=== PATIENT | female | born 1965 | race Hispanic/Latino ===

== ENCOUNTER 2022-07-08 16:09 | Inpatient (IN) | payer OTHER ==
[~2022-07-08] VITALS: Ht 142.2 cm; Wt 96.2 kg
[~2022-07-08 16:09] MED LIST: DEXAMETHASONE SOD PHOS INJ 4 MG/ML SDV ONE; EPHEDRINE SULFATE INJ 50 MG/ML VIAL ONE; LIDOCAINE HCL 2% LOCAL INJ 5 ML SDV VIAL INJ ONE; METOCLOPRAMIDE HCL 10 MG/2ML VIAL ONE; ONDANSETRON HCL INJ 2MG/ML 2ML 2 MG/ML VIAL ONE; POVIDONE IODINE 0.05% 0.05 % ML PO ONE; PROPOFOL IV EMULSION 10 MG/ML 20 ML VIAL ONE; ROCURONIUM BROMIDE 10 MG/ML 5ML VIAL IV ONE; SUCCINYLCHOLINE CHLORIDE 20 MG/ML 10ML VIAL ONE
[2022-07-08] MEDS ORDERED: ONDANSETRON HCL INJ 2MG/ML 2ML 2 MG/ML VIAL IV PRN ×2 (16:30→17:30)
[2022-07-08] MEDS ORDERED: Morphine 4mg INJECTION 4 MG/ML INJ IV PRN ×2 (16:30→17:30)
[2022-07-08] MEDS ORDERED: SODIUM CHLORIDE 0.9% 1000ML 1,000 ML IV ONE (16:30)
[2022-07-08 16:53] LABS: BASOPHILS % 0.2 % (0.0-1.0); EOSINOPHILS % 0.1 % (0.0-6.0); HEMATOCRIT 42.1 % (34.2-44.1); HEMOGLOBIN 13.6 g/dL (12.0-16.0); LYMPHOCYTES # (AUTO) 1.5 (1.0-3.2); LYMPHOCYTES % 7.9 % (18.0-39.1); MEAN CORPUSCULAR HGB CONC 32.3 g/dL (31-35); MEAN CORPUSCULAR VOLUME 92.7 fL (81-99); MONOCYTES # (AUTO) 1.3 (0.2-0.8); MONOCYTES % 6.5 % (4.4-11.3); NEUTROPHILS # (AUTO) 16.3 (2.1-6.9); NEUTROPHILS % 84.2 % (38.7-80.0); PLATELET COUNT 218 x10e3/uL (140-360); RED BLOOD COUNT 4.54 x10e6/uL (3.6-5.1)
[2022-07-08 17:12] LABS: ALANINE AMINOTRANSFERASE 30 IU/L (0-55); ALBUMIN 2.9 g/dL (3.5-5.0); ALBUMIN/GLOBULIN RATIO 0.8 (0.8-2.0); ALKALINE PHOSPHATASE 79 IU/L (40-150); ANION GAP 15.2 mmol/L (8-16); BLOOD UREA NITROGEN 51 mg/dL (7-26); BUN/CREATININE RATIO 35 (6-25); CALCIUM 9.3 mg/dL (8.4-10.2); CARBON DIOXIDE 23 mmol/L (22-29); CHLORIDE 108 mmol/L (98-107); CREATININE, SERUM 1.44 mg/dL (0.57-1.11); GLUCOSE 103 mg/dL (74-118); POTASSIUM 3.2 mmol/L (3.5-5.1); SODIUM 143 mmol/L (136-145)
[2022-07-08] MEDS ORDERED: IOPAMIDOL 370 MG/ML 100 ML INFUS..BTL INJ ONE (18:19)
[2022-07-08] MEDS: METRONIDAZOLE 500MG/NS 100ML 100 ML IV SCH (19:11)
[2022-07-08] MEDS: SODIUM CHLORIDE 0.9% 1000ML 1,000 ML IV SCH (19:11)
[2022-07-08] MEDS: POTASSIUM CHLORIDE 20MEQ/100ML 100 ML IV SCH ×2 (19:13→21:42)
[2022-07-08 23:27] VITALS: BP 133/47; PULSE 94; RESP 20; TEMP 98.1; O2SAT 94
[2022-07-09] VITALS (8 sets, daily range): BP systolic 100–151; BP diastolic 43–75; PULSE 79–94; RESP 18–23; TEMP 97.6–98.4; O2SAT 94–100
[2022-07-09] MEDS: METRONIDAZOLE 500MG/NS 100ML 100 ML IV SCH ×5 (00:23→23:39)
[2022-07-09] MEDS: SODIUM CHLORIDE 0.9% 1000ML 1,000 ML IV SCH ×4 (01:27→21:13)
[2022-07-09 05:34] LABS: BASOPHILS # (AUTO) 0.1 (0.0-0.1); BASOPHILS % 0.3 % (0.0-1.0); EOSINOPHILS # (AUTO) 0.1 (0.0-0.4); EOSINOPHILS % 0.4 % (0.0-6.0); HEMATOCRIT 35.1 % (34.2-44.1); HEMOGLOBIN 11.3 g/dL (12.0-16.0); LYMPHOCYTES # (AUTO) 1.7 (1.0-3.2); LYMPHOCYTES % 10.6 % (18.0-39.1); MEAN CORPUSCULAR HEMOGLOBIN 30.1 pg (28-32); MEAN CORPUSCULAR HGB CONC 32.2 g/dL (31-35); MEAN CORPUSCULAR VOLUME 93.6 fL (81-99); MONOCYTES # (AUTO) 1.1 (0.2-0.8); MONOCYTES % 7.2 % (4.4-11.3); NEUTROPHILS # (AUTO) 12.7 (2.1-6.9); NEUTROPHILS % 80.1 % (38.7-80.0); PLATELET COUNT 163 x10e3/uL (140-360); RED BLOOD COUNT 3.75 x10e6/uL (3.6-5.1); RED CELL DISTRIBUTION WIDTH 14.1 % (11.7-14.4)
[2022-07-09 05:47] LABS: ANION GAP 14.3 mmol/L (8-16); CALCIUM 8.2 mg/dL (8.4-10.2); CREATININE, SERUM 0.96 mg/dL (0.57-1.11); POTASSIUM 3.3 mmol/L (3.5-5.1)
[2022-07-09] MEDS: POTASSIUM CHLORIDE 20MEQ/100ML 100 ML IV SCH ×2 (10:11→12:16)
[2022-07-10] VITALS (8 sets, daily range): BP systolic 123–150; BP diastolic 60–75; PULSE 78–86; RESP 16–20; TEMP 97.5–98.2; O2SAT 95–100
[2022-07-10] MEDS: SODIUM CHLORIDE 0.9% 1000ML 1,000 ML IV SCH (05:46)
[2022-07-10] MEDS: METRONIDAZOLE 500MG/NS 100ML 100 ML IV SCH ×3 (05:46→18:00)
[2022-07-10 05:51] LABS: BASOPHILS # (AUTO) 0.1 (0.0-0.1); BASOPHILS % 0.5 % (0.0-1.0); EOSINOPHILS # (AUTO) 0.1 (0.0-0.4); EOSINOPHILS % 0.8 % (0.0-6.0); HEMATOCRIT 35.4 % (34.2-44.1); HEMOGLOBIN 11.3 g/dL (12.0-16.0); LYMPHOCYTES # (AUTO) 1.5 (1.0-3.2); LYMPHOCYTES % 12.9 % (18.0-39.1); MEAN CORPUSCULAR HGB CONC 31.9 g/dL (31-35); MEAN CORPUSCULAR VOLUME 93.9 fL (81-99); MONOCYTES # (AUTO) 0.8 (0.2-0.8); MONOCYTES % 6.9 % (4.4-11.3); NEUTROPHILS # (AUTO) 9.1 (2.1-6.9); NEUTROPHILS % 76.6 % (38.7-80.0); PLATELET COUNT 118 x10e3/uL (140-360); RED BLOOD COUNT 3.77 x10e6/uL (3.6-5.1); RED CELL DISTRIBUTION WIDTH 14.3 % (11.7-14.4)
[2022-07-10 06:31] LABS: ALBUMIN 2.5 g/dL (3.5-5.0); ALBUMIN/GLOBULIN RATIO 0.8 (0.8-2.0); ANION GAP 15.9 mmol/L (8-16); CALCIUM 8.3 mg/dL (8.4-10.2); CREATININE, SERUM 0.68 mg/dL (0.57-1.11); PHOSPHORUS 1.7 MG/DL (2.3-4.7); POTASSIUM 3.9 mmol/L (3.5-5.1)
[2022-07-10] MEDS ORDERED: DEXTROSE 5%/0.45% SOD CHL 1,000 ML IV ONE (08:30)
[2022-07-10] MEDS ORDERED: POTASSIUM PHOSPHATE 15 MM in DEXTROSE 5% 250ML 250 ML IV ONE (09:00)
[2022-07-10] MEDS: DEXTROSE 5% 1,000 ML IV SCH ×2 (11:15→19:15)
[2022-07-10] MEDS ORDERED: FENTANYL CITRATE/PF 100MCG/2 ML INJ ONE (14:39)
[2022-07-10] MEDS ORDERED: MIDAZOLAM HCL 2 MG/2 ML VIAL ONE (14:39)
[2022-07-10] MEDS ORDERED: ROPIVACAINE 246.25 MG, EPINEPHRINE HCL 1:1000 1ML 0.5 MG, CLONIDINE HCL 0.08 MG, KETORO... INJ ONE ×5 (16:00)
[2022-07-10] MEDS ORDERED: DEXTROSE 5% 250ML 250 ML IV ONE (17:56)
[2022-07-10] MEDS ORDERED: SUGAMMADEX SODIUM 200 MG/2 ML VIAL IV ONE (18:48)
[2022-07-10] MEDS ORDERED: NALOXONE HCL INJ 0.4 MG/ML AMP IV PRN (19:30)
[2022-07-10] MEDS ORDERED: ONDANSETRON HCL INJ 2MG/ML 2ML 2 MG/ML VIAL IV PRN (19:30)
[2022-07-10] MEDS ORDERED: KETOROLAC TROMETHAMINE 30 MG/ML VIAL IV PRN (19:30)
[2022-07-10] MEDS ORDERED: HYDROMORPHONE 0.2MG/ML-SOD CHL 30ML PCA SYRINGE IV PRN (19:30)
[2022-07-10] MEDS: SODIUM CHLORIDE 0.9% 250ML IRRIG IR SCH (19:30)
[2022-07-10] MEDS ORDERED: HYDROMORPHONE 0.2MG/ML-SOD CHL 30ML PCA SYRINGE IV ONE (19:45)
[2022-07-11] VITALS (8 sets, daily range): BP systolic 106–133; BP diastolic 52–66; PULSE 65–78; RESP 14–20; TEMP 97.3–98.6; O2SAT 92–100
[2022-07-11] MEDS: SODIUM CHLORIDE 0.9% 250ML IRRIG IR SCH ×6 (00:23→21:02)
[2022-07-11] MEDS: DEXTROSE 5% 1,000 ML IV SCH ×3 (02:37→21:02)
[2022-07-11 05:02] LABS: BASOPHILS # (AUTO) 0.1 (0.0-0.1); BASOPHILS % 0.5 % (0.0-1.0); EOSINOPHILS % 0.1 % (0.0-6.0); HEMATOCRIT 32.4 % (34.2-44.1); HEMOGLOBIN 10.2 g/dL (12.0-16.0); LYMPHOCYTES # (AUTO) 1.1 (1.0-3.2); LYMPHOCYTES % 8.2 % (18.0-39.1); MEAN CORPUSCULAR HEMOGLOBIN 29.6 pg (28-32); MEAN CORPUSCULAR HGB CONC 31.5 g/dL (31-35); MEAN CORPUSCULAR VOLUME 93.9 fL (81-99); MONOCYTES # (AUTO) 0.9 (0.2-0.8); NEUTROPHILS # (AUTO) 10.8 (2.1-6.9); NEUTROPHILS % 82.3 % (38.7-80.0); PLATELET COUNT 217 x10e3/uL (140-360); RED BLOOD COUNT 3.45 x10e6/uL (3.6-5.1); RED CELL DISTRIBUTION WIDTH 14.1 % (11.7-14.4)
[2022-07-11 05:17] LABS: ANION GAP 12.2 mmol/L (8-16); CALCIUM 7.5 mg/dL (8.4-10.2); CREATININE, SERUM 0.65 mg/dL (0.57-1.11); POTASSIUM 3.2 mmol/L (3.5-5.1)
[2022-07-11] MEDS ORDERED: POTASSIUM CHLORIDE 20MEQ/100ML 100 ML IV ONE (10:30)
[2022-07-11] MEDS ORDERED: HYDROMORPHONE 0.2MG/ML-SOD CHL 30ML PCA SYRINGE IV PRN (17:15)
[2022-07-12] MEDS: SODIUM CHLORIDE 0.9% 250ML IRRIG IR SCH ×6 (00:41→19:44)
[2022-07-12 04:00] VITALS: BP 145/65; PULSE 81; RESP 18; TEMP 98; O2SAT 97
[2022-07-12] MEDS: DEXTROSE 5% 1,000 ML IV SCH ×3 (04:57→19:15)
[2022-07-12 08:45] VITALS: BP 154/64; PULSE 83; RESP 18; TEMP 97.9; O2SAT 95
[2022-07-12 08:51] LABS: BASOPHILS # (AUTO) 0.1 (0.0-0.1); BASOPHILS % 0.4 % (0.0-1.0); EOSINOPHILS # (AUTO) 0.5 (0.0-0.4); EOSINOPHILS % 3.7 % (0.0-6.0); HEMOGLOBIN 11.3 g/dL (12.0-16.0); LYMPHOCYTES # (AUTO) 1.9 (1.0-3.2); LYMPHOCYTES % 15.4 % (18.0-39.1); MEAN CORPUSCULAR HEMOGLOBIN 29.4 pg (28-32); MEAN CORPUSCULAR HGB CONC 32.3 g/dL (31-35); MEAN CORPUSCULAR VOLUME 91.1 fL (81-99); MONOCYTES # (AUTO) 1.1 (0.2-0.8); MONOCYTES % 8.8 % (4.4-11.3); NEUTROPHILS # (AUTO) 8.3 (2.1-6.9); NEUTROPHILS % 67.1 % (38.7-80.0); PLATELET COUNT 223 x10e3/uL (140-360); RED BLOOD COUNT 3.84 x10e6/uL (3.6-5.1); RED CELL DISTRIBUTION WIDTH 13.7 % (11.7-14.4)
[2022-07-12 09:10] LABS: ANION GAP 10.8 mmol/L (8-16); CREATININE, SERUM 0.57 mg/dL (0.57-1.11)
[2022-07-12 09:17] LABS: POTASSIUM 2.8 mmol/L (3.5-5.1)
[2022-07-12] MEDS ORDERED: POTASSIUM CHLORIDE 20MEQ/100ML 300 ML IV ONE (10:00)
[2022-07-12 12:58] VITALS: BP 145/75; PULSE 79; RESP 17; TEMP 98.8; O2SAT 94
[2022-07-12 14:17] VITALS: BP 145/75; PULSE 79; RESP 17; TEMP 98.8; O2SAT 94
[2022-07-12] MEDS ORDERED: HYDROMORPHONE 1MG/1ML INJ IV PRN (16:15)
[2022-07-12 16:44] VITALS: BP 140/72; PULSE 79; RESP 18; TEMP 98.3; O2SAT 97
[2022-07-12] MEDS: ENOXAPARIN SOD INJ 40 MG/0.4 ML SYR SC SCH (17:50)
[2022-07-12] MEDS: BISACODYL 10 MG SUPP PR SCH (19:46)
[2022-07-12 20:00] VITALS: BP 144/73; PULSE 78; RESP 18; TEMP 97.8; O2SAT 95
[2022-07-13] VITALS (7 sets, daily range): BP systolic 123–159; BP diastolic 61–81; PULSE 72–88; RESP 17–22; TEMP 97.4–98.5; O2SAT 94–98
[2022-07-13] MEDS: SODIUM CHLORIDE 0.9% 250ML IRRIG IR SCH ×7 (00:01→23:30)
[2022-07-13] MEDS: DEXTROSE 5% 1,000 ML IV SCH ×3 (00:01→21:12)
[2022-07-13 06:49] LABS: BASOPHILS # (AUTO) 0.1 (0.0-0.1); BASOPHILS % 0.5 % (0.0-1.0); EOSINOPHILS # (AUTO) 0.4 (0.0-0.4); EOSINOPHILS % 3.8 % (0.0-6.0); HEMATOCRIT 33.9 % (34.2-44.1); HEMOGLOBIN 10.7 g/dL (12.0-16.0); LYMPHOCYTES # (AUTO) 2.2 (1.0-3.2); LYMPHOCYTES % 20.8 % (18.0-39.1); MEAN CORPUSCULAR HEMOGLOBIN 29.9 pg (28-32); MEAN CORPUSCULAR HGB CONC 31.6 g/dL (31-35); MEAN CORPUSCULAR VOLUME 94.7 fL (81-99); MONOCYTES % 9.5 % (4.4-11.3); NEUTROPHILS # (AUTO) 6.4 (2.1-6.9); NEUTROPHILS % 60.5 % (38.7-80.0); PLATELET COUNT 221 x10e3/uL (140-360); RED BLOOD COUNT 3.58 x10e6/uL (3.6-5.1); RED CELL DISTRIBUTION WIDTH 13.6 % (11.7-14.4)
[2022-07-13 07:15] LABS: ANION GAP 11.9 mmol/L (8-16); CALCIUM 8.2 mg/dL (8.4-10.2); CREATININE, SERUM 0.62 mg/dL (0.57-1.11)
[2022-07-13 07:19] LABS: POTASSIUM 2.9 mmol/L (3.5-5.1)
[2022-07-13] MEDS: BISACODYL 10 MG SUPP PR SCH (08:13)
[2022-07-13] MEDS: POTASSIUM CHLORIDE 20MEQ/100ML 100 ML IV SCH ×3 (10:12→16:56)
[2022-07-13] MEDS: ENOXAPARIN SOD INJ 40 MG/0.4 ML SYR SC SCH (16:48)
[2022-07-14] VITALS (7 sets, daily range): BP systolic 123–151; BP diastolic 72–80; PULSE 72–82; RESP 17–20; TEMP 97.8–98.7; O2SAT 97–98
[2022-07-14] MEDS: SODIUM CHLORIDE 0.9% 250ML IRRIG IR SCH ×3 (03:30→11:30)
[2022-07-14] MEDS: DEXTROSE 5% 1,000 ML IV SCH ×2 (03:37→13:58)
[2022-07-14 04:27] LABS: BASOPHILS % 0.4 % (0.0-1.0); EOSINOPHILS # (AUTO) 0.4 (0.0-0.4); EOSINOPHILS % 3.8 % (0.0-6.0); HEMATOCRIT 34.2 % (34.2-44.1); HEMOGLOBIN 11.1 g/dL (12.0-16.0); LYMPHOCYTES % 18.5 % (18.0-39.1); MEAN CORPUSCULAR HEMOGLOBIN 29.8 pg (28-32); MEAN CORPUSCULAR HGB CONC 32.5 g/dL (31-35); MEAN CORPUSCULAR VOLUME 91.7 fL (81-99); MONOCYTES # (AUTO) 0.9 (0.2-0.8); MONOCYTES % 8.5 % (4.4-11.3); NEUTROPHILS % 64.8 % (38.7-80.0); PLATELET COUNT 252 x10e3/uL (140-360); RED BLOOD COUNT 3.73 x10e6/uL (3.6-5.1); RED CELL DISTRIBUTION WIDTH 13.7 % (11.7-14.4)
[2022-07-14 04:46] LABS: ALANINE AMINOTRANSFERASE 18 IU/L (0-55); ALBUMIN 2.5 g/dL (3.5-5.0); ALBUMIN/GLOBULIN RATIO 0.8 (0.8-2.0); ALKALINE PHOSPHATASE 69 IU/L (40-150); ANION GAP 11.5 mmol/L (8-16); BLOOD UREA NITROGEN < 5 mg/dL (7-26); CALCIUM 8.3 mg/dL (8.4-10.2); CARBON DIOXIDE 30 mmol/L (22-29); CHLORIDE 103 mmol/L (98-107); CREATININE, SERUM 0.57 mg/dL (0.57-1.11); GLUCOSE 123 mg/dL (74-118); MAGNESIUM 1.4 MG/DL (1.3-2.1); PHOSPHORUS 2.2 MG/DL (2.3-4.7); POTASSIUM 3.5 mmol/L (3.5-5.1); SODIUM 141 mmol/L (136-145)
[2022-07-14 04:48] LABS: BUN/CREATININE RATIO 9 (6-25)
== END 2022-07-14 16:08 | disposition home or self-care (01) | DRG 330 ==
LOC: ER 16:13 → ERHOLD 17:20 → MED/SURG 22:53
PROVIDERS: ADMIT Internal Medicine; ATTEND Internal Medicine
PROC: 0DBB0ZZ Excision of Ileum, Open Approach (ICD-10-PCS; principal; 2022-07-10 17:20)
DX: K56.2 Volvulus (principal); N17.9 Acute kidney failure, unspecified; Z68.42 Body mass index [BMI] 45.0-49.9, adult; K56.50 Intestinal adhesions [bands], unspecified as to partial versus complete obstruction; E87.6 Hypokalemia; E66.01 Morbid (severe) obesity due to excess calories; R00.0 Tachycardia, unspecified; I10 Essential (primary) hypertension; D72.829 Elevated white blood cell count, unspecified; Z98.84 Bariatric surgery status; Z88.0 Allergy status to penicillin; Z20.822 Contact with and (suspected) exposure to COVID-19
CPT/HCPCS: 0223U; 36415; 71045; 71260; 74018; 74022; 74177; 80048; 80053; 82948; 83605; 83690; 83735; 84100; 85025; 87040; 88304; 88307; 93005; 94799; 96360; J0171; J0330; J0696; J1100; J1170; J1650; J1885; J2001; J2250; J2270; J2405; J2765; J2795; J3480; J7030; J7070; Q9967